=== PATIENT | male | born 1965 | race Caucasian/White ===

== ENCOUNTER 2019-01-31 09:50 | Emergency (ER) | payer OTHER ==
[~2019-01-31] VITALS: Ht 180.3 cm; Wt 77.3 kg
[2019-01-31 09:53] VITALS: TEMP 98.6
[2019-01-31 10:57] LABS: BASO % 0.5 % (0.0-2.0); EOS % 0.2 % (0-4.0); GRAN % 82.9 % (42.2-75.2); HEMATOCRIT 45.2 % (42.0-52.0); LYMPH # 0.6 (1.2-3.4); LYMPH % 9.5 % (20.0-51.0); MEAN CELL VOLUME 98 fl (80.0-100.0); MEAN CORPUSCULAR HEMOGLOBIN 33 pg (27.0-31.0); MEAN CORPUSCULAR HGB CONC 33 g/dl (33.0-37.0); MEAN PLATELET VOLUME 12.9 fl (7.4-10.4); MONO # 0.4 (0.1-0.6); MONO % 6.6 % (1.7-9.3); PLATELET COUNT 103 K/mm3 (130-400); RED BLOOD COUNT 4.62 M/mm3 (4.20-5.60); REDCELL DISTRIBUTION WIDTH-CV 12.2 % (11.5-14.5)
[2019-01-31] MEDS ORDERED: LIORESAL20 MG PO (11:03)
[2019-01-31] MEDS ORDERED: BUSPAR10 MG PO (11:04)
[2019-01-31] MEDS ORDERED: VOLTAREN GEL 1%1 TU TP (11:05)
[2019-01-31] MEDS ORDERED: VITAMIN D 1001000 IU PO (11:05)
[2019-01-31 11:06] LABS: ALANINE AMINOTRANSFERASE 13 U/L (21-72); ALBUMIN 4.5 gm/dL (3.5-5.0); ALKALINE PHOSPHATASE 75 U/L (50-136); ANION GAP 7 mmol/L (7-16); AST,SGOT 23 U/L (15-37); BILIRUBIN,TOTAL 0.4 mg/dL (0.0-1.0); BLOOD UREA NITROGEN 15 mg/dL (9-20); CALCIUM 9.1 mg/dL (8.4-10.2); CARBON DIOXIDE 32 mmol/L (22-30); CHLORIDE 98 mmol/L (98-107); CREATININE, serum 1.06 (0.66-1.25); GLUCOSE 109 mg/dL (74-106); POTASSIUM 4.1 mmol/L (3.4-5.0); SODIUM 137 mmol/L (137-145); TOTAL PROTEIN 7.5 gm/dL (6.4-8.2)
[2019-01-31] MEDS ORDERED: VOLTAREN 75 DR75 MG PO (11:06)
[2019-01-31] MEDS ORDERED: SENOKOT S 50 MG1 TAB PO (11:07)
[2019-01-31] MEDS ORDERED: NEXIUM 40MG40 MG PO (11:07)
[2019-01-31 11:10] LABS: ACETAMINOPHEN < 10 ug/mL (10-30); ALCOHOL(ethanol),MEDICAL < 10 mg/dL; SALICYLATE < 1.0 mg/dL
[2019-01-31] MEDS ORDERED: SARAFEM10 MG PO (11:12)
[2019-01-31] MEDS ORDERED: FOLIC ACID 11 MG/TA1 PO (11:12)
[2019-01-31] MEDS ORDERED: ATARAX 25MG25 MG/TAB PO (11:13)
[2019-01-31] MEDS ORDERED: HYDROPHILIC GRX1 OIN (11:13)
[2019-01-31] MEDS ORDERED: ZADITOR 5 ML5 ML OP (11:14)
[2019-01-31] MEDS ORDERED: NARCAN4 MG NS (11:14)
[2019-01-31] MEDS ORDERED: PERCOCET 325 MG1 TA2 PO (11:16)
[2019-01-31] MEDS ORDERED: PAXIL 20MG20 MG PO (11:17)
[2019-01-31] MEDS ORDERED: INDERAL LA 80MG80 MG PO (11:17)
[2019-01-31] MEDS ORDERED: REGULOID POWDE PO (11:18)
[2019-01-31 11:19] LABS: TROPONIN-I < 0.012 ng/mL (0.000-0.035)
[2019-01-31 11:57] LABS: COLLECTION METHOD CLEAN CATCH
[2019-01-31 12:01] LABS: PH 8 (5-8); SQUAMOUS EPITHELIAL None Seen /hpf; URINE APPEARANCE Clear; URINE BACTERIA None Seen /hpf; URINE BILIRUBIN Negative (NEGATIVE); URINE BLOOD Negative (NEGATIVE); URINE COLOR Straw; URINE GLUCOSE Negative (NEGATIVE); URINE KETONE Negative (NEGATIVE); URINE LEUKOCYTE ESTERASE Negative (NEGATIVE); URINE NITRATE Negative (NEGATIVE); URINE PROTEIN(semi-quant) Negative (NEGATIVE); URINE RBC None Seen /hpf; URINE UROBILINOGEN Negative (NEGATIVE)
[2019-01-31 13:30] VITALS: BP 99/57; PULSE 84
[2019-01-31] MEDS ORDERED: PROAMATINE2.5 MG PO (13:37)
== END 2019-01-31 13:53 | disposition home or self-care (01) ==
LOC: COL.ER 09:50
PROVIDERS: Emergency Medicine
DX: R41.0 Disorientation, unspecified (principal); R53.81 Other malaise; F43.10 Post-traumatic stress disorder, unspecified
CPT/HCPCS: J2270; J2405; J7030

== ENCOUNTER 2019-03-26 08:15 | Outpatient (CLI) | payer OTHER ==
[~2019-03-26] VITALS: Ht 180.3 cm; Wt 72.7 kg
[~2019-03-26 08:15] MED LIST: ATARAX 25MG25 MG/TAB PO; BUSPAR10 MG PO; FOLIC ACID 11 MG/TA1 PO; HYDROPHILIC GRX1 OIN PO; INDERAL LA 80MG80 MG PO; LIORESAL20 MG PO; NARCAN4 MG NS; NEXIUM 40MG40 MG PO; PAXIL 20MG20 MG PO; PERCOCET 325 MG1 TA2 PO; PROAMATINE2.5 MG PO; REGULOID POWDE PO; SARAFEM10 MG PO; SENOKOT S 50 MG1 TAB PO; VITAMIN D 1001000 IU PO; VOLTAREN 75 DR75 MG PO; VOLTAREN GEL 1%1 TU TP; ZADITOR 5 ML5 ML OP
[2019-03-26 09:00] VITALS: BP 106/76; PULSE 89; TEMP 98.6
[2019-03-26] MEDS ORDERED: KLONOPIN 1MG1 MG PO (09:04)
[2019-03-26] MEDS ORDERED: SENNA-S 50 MG-81 TAB PO (09:06)
[2019-03-26] MEDS ORDERED: NEXIUM 40MG40 MG PO (09:07)
[2019-03-26] MEDS ORDERED: PEPCID 20MG TAB20 MG PO (09:08)
[2019-03-26] MEDS ORDERED: DESYREL 100MG100 MG PO (09:13)
[2019-03-26] MEDS ORDERED: MINIPRESS2 MG PO (09:15)
--- NOTE | 2019-03-26 09:52 | NUR ---
Pt to procedure,report to Yessi Li.
[2019-03-26] MEDS ORDERED: CEPHALEXIN500 M1 PO (11:23)
[2019-03-26 11:28] VITALS: BP 127/93; PULSE 88
[2019-03-26 12:38] VITALS: BP 136/87; PULSE 103
--- NOTE | 2019-03-26 12:54 | NUR ---
Discharge instructions given to pt.pt verbalizes understanding.Pt escorted out by this nurse.
== END 2019-03-26 12:55 | disposition home or self-care (01) ==
LOC: COL.CAR 08:15
DX: R55 Syncope and collapse (principal); F41.9 Anxiety disorder, unspecified; I10 Essential (primary) hypertension; K21.9 Gastro-esophageal reflux disease without esophagitis; E78.5 Hyperlipidemia, unspecified; R56.9 Unspecified convulsions; F19.20 Other psychoactive substance dependence, uncomplicated; F43.10 Post-traumatic stress disorder, unspecified; G62.9 Polyneuropathy, unspecified; Z87.820 Personal history of traumatic brain injury; Z98.52 Vasectomy status; Z87.891 Personal history of nicotine dependence; Z88.8 Allergy status to other drugs, medicaments and biological substances
CPT/HCPCS: 27124; C1764

== ENCOUNTER 2019-04-21 14:15 | Outpatient (RCR) | payer OTHER ==
[~2019-04-21 14:15] MED LIST changes: +CEPHALEXIN500 M1 PO; +DESYREL 100MG100 MG PO; +KLONOPIN 1MG1 MG PO; +MINIPRESS2 MG PO; +PEPCID 20MG TAB20 MG PO; +SENNA-S 50 MG-81 TAB PO
== END 2019-06-28 | disposition home or self-care (01) ==
LOC: WSC
DX: M62.81 Muscle weakness (generalized) (principal)

== ENCOUNTER → 2019-06-04 | Outpatient (CLI) | payer OTHER | LOC: COL.CARD 09:46 | DX: R20.0 Anesthesia of skin (principal); R20.2 Paresthesia of skin; R41.89 Other symptoms and signs involving cognitive functions and awareness; G43.109 Migraine with aura, not intractable, without status migrainosus; R55 Syncope and collapse; I95.9 Hypotension, unspecified; R27.0 Ataxia, unspecified ==

== ENCOUNTER 2019-11-30 16:00 | Outpatient (RCR) | payer OTHER | END 2020-01-06 | disposition home or self-care (01) | LOC: WSC | DX: M48.061 Spinal stenosis, lumbar region without neurogenic claudication (principal); M54.16 Radiculopathy, lumbar region ==